=== PATIENT | male | born 1965 | race American Indian/Alaskan Native ===

== ENCOUNTER 2020-08-04 13:15 | Emergency (ER) | payer SELFPAY ==
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
[2020-08-04 14:37] LABS: Basophils % (Auto) 0.4 % (0.0-1.8); Eosinophils # (Auto) 0.1 K/mm3 (0.0-0.4); Eosinophils % (Auto) 0.9 % (0.0-4.3); Hematocrit 37.1 % (35.5-45.6); Lymphocytes % (Auto) 23.2 % (13.4-35.0); Mean Corpuscular HGB Conc 32 % (32-34); Mean Corpuscular Volume 85 fl (84-94); Monocytes # (Auto) 0.8 K/mm3 (0.0-0.8); Platelet Count 308 K/mm3 (140-440); Red Blood Count 4.37 M/mm3 (3.65-5.03); Red Cell Distribution Width 15.4 % (13.2-15.2)
[2020-08-04 14:50] LABS: BUN/Creatinine Ratio 15; Blood Urea Nitrogen 12 mg/dL (9-20); Calcium 8.5 mg/dL (8.4-10.2); Hemolysis Index 10
[2020-08-04 16:40] LABS: Bacteria,Urine 1+ /HPF (Negative); Bilirubin,Urine NEG (Negative); Blood,Urine MOD (Negative); Color,Urine Yellow (Yellow); Mucus,Urine FEW /HPF; Protein,Urine <15 mg/dL mg/dL (Negative); Urobilinogen,Urine < 2.0 mg/dL (<2.0)
[2020-08-04 16:42] LABS: WBC,Urine > 182.0 /HPF (0.0-6.0)
[2020-08-04] MEDS ORDERED: SODIUM CHLORIDE 0.9% 1000 ML 1,000 ML IV ONE (16:48)
[2020-08-04] MEDS ORDERED: levoFLOXacin 500 MG TAB PO ONE (16:49)
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
[2020-08-04 19:29] VITALS: BP 151/97
== END 2020-08-04 22:26 | disposition home or self-care (01) ==
LOC: ED 13:15
DX: N39.0 Urinary tract infection, site not specified (principal); R53.1 Weakness; I10 Essential (primary) hypertension; Z79.899 Other long term (current) drug therapy; Z86.69 Personal history of other diseases of the nervous system and sense organs
CPT/HCPCS: 36415; 70450; 80048; 81001; 84484; 85025; 93005; 96360; 96361; 99284; J7030

== ENCOUNTER 2020-08-14 20:14 | Emergency (ER) | payer MEDICARE ==
[2020-08-14 21:23] LABS: Bilirubin,Urine NEG (Negative); Blood,Urine SM (Negative); Color,Urine Yellow (Yellow); Mucus,Urine FEW /HPF; Protein,Urine <15 mg/dL mg/dL (Negative); Urobilinogen,Urine < 2.0 mg/dL (<2.0)
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
[2020-08-14 21:25] LABS: Amphetamine Screen,Urine PRESUMPTIVE NEGATIVE; Benzodiazepines Screen,Urine PRESUMPTIVE NEGATIVE; Cannabinoid Screen,Urine PRESUMPTIVE NEGATIVE; Cocaine Screen,Urine PRESUMPTIVE NEGATIVE; Methadone Screen,Urine PRESUMPTIVE NEGATIVE; Opiate Screen,Urine PRESUMPTIVE NEGATIVE
[2020-08-14 21:51] LABS: Basophils # (Auto) 0.1 K/mm3 (0.0-0.1); Basophils % (Auto) 1.1 % (0.0-1.8); Eosinophils # (Auto) 0.1 K/mm3 (0.0-0.4); Eosinophils % (Auto) 1.3 % (0.0-4.3); Hematocrit 42.1 % (35.5-45.6); Hemoglobin 13.7 gm/dl (11.8-15.2); Lymphocytes # (Auto) 2.3 K/mm3 (1.2-5.4); Lymphocytes % (Auto) 28.7 % (13.4-35.0); Mean Corpuscular HGB Conc 33 % (32-34); Mean Corpuscular Volume 88 fl (84-94); Monocytes # (Auto) 0.7 K/mm3 (0.0-0.8); Monocytes % (Auto) 8.6 % (0.0-7.3); Platelet Count 284 K/mm3 (140-440); Red Blood Count 4.79 M/mm3 (3.65-5.03); Red Cell Distribution Width 16.3 % (13.2-15.2)
[2020-08-14 22:04] LABS: Alanine Aminotransferase 9 units/L (7-56); Albumin 4.2 g/dL (3.9-5); BUN/Creatinine Ratio 19; Blood Urea Nitrogen 15 mg/dL (9-20); Calcium 9.1 mg/dL (8.4-10.2); Hemolysis Index 56
[2020-08-14] MEDS ORDERED: IBUPROFEN 800 MG TAB ONE (22:25)
[2020-08-14] MEDS ORDERED: IBUPROFEN 800 MG TAB PO ONE (22:26)
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
--- NOTE | 2020-08-16 11:36 | XRay Report ---
CHEST 1 VIEW INDICATION / CLINICAL INFORMATION: Cough FINDINGS: SUPPORT DEVICES: None. HEART / MEDIASTINUM: No significant abnormality. LUNGS / PLEURA: No definite pulmonary or pleural abnormality. See below. No pneumothorax. ADDITIONAL FINDINGS: Ill-defined opacity symmetrically noted projecting over both lower lungs may rep resent nipple shadow. IMPRESSION: 1. No acute findings. Signer Name: Geo Lima MD Signed: 08/16/2020 11:32 AM Workstation Name: [id number]
[2020-08-16] MEDS ORDERED: ACETAMINOPHEN 500 MG TAB PO ONE (20:39)
[2020-08-17] MEDS ORDERED: ACETAMINOPHEN 325 MG TAB PO ONE ×3 (05:28→23:58)
[2020-08-17] MEDS ORDERED: ACETAMINOPHEN 325 MG TAB ONE (23:59)
[2020-08-19] MEDS ORDERED: IBUPROFEN 800 MG TAB PO ONE (20:35)
[2020-08-19 22:07] VITALS: BP 127/69
== END 2020-08-19 21:55 | disposition home or self-care (01) ==
LOC: EEVIPCON 20:14 → ED 20:14
DX: R45.851 Suicidal ideations (principal); I10 Essential (primary) hypertension; F17.200 Nicotine dependence, unspecified, uncomplicated; Z86.69 Personal history of other diseases of the nervous system and sense organs; Z79.899 Other long term (current) drug therapy; Z98.890 Other specified postprocedural states; Z90.49 Acquired absence of other specified parts of digestive tract; Z20.828 Contact with and (suspected) exposure to other viral communicable diseases
CPT/HCPCS: 36415; 71045; 80053; 80156; 80307; 81001; 85025; 99285; U0003; 80320; G0480

== ENCOUNTER 2020-09-25 05:44 | Emergency (ER) | payer MEDICARE ==
[2020-09-25 07:17] VITALS: BP 130/74
--- NOTE | 2020-09-25 12:03 | Emergency Department Report ---
ED General Adult HPI - General Chief complaint: Medical Clearance Stated complaint: PLACE TO STAY Time Seen by Provider: 09/25/20 11:53 Source: patient Mode of arrival: Ambulatory Limitations: Other - History of Present Illness Initial comments: Patient is a 55-year-old male who presents emergency room with complaints of needing a place to stay. He states that he is looking for a halfway. He denies any physical complaints. He denies any pain, vomiting, diarrhea, fever, shortness of breath, chest pain. He denies any SI, HI, hallucinations. He has a past medical history of seizures, blindness, and hypertension. He states that he takes Depakote for his seizures and has not missed any doses. Severity scale (0 -10): 0 - Related Data Home Medications Medication Instructions Recorded Confirmed Last Taken Divalproex Dr [Depakote Dr] 125 mg PO DAILY 08/16/20 08/16/20 Unknown Lisinopril [Zestril TAB] 2.5 mg PO QDAY 08/16/20 08/16/20 Unknown Allergies Allergy/AdvReac Type Severity Reaction Status Date / Time No Known Allergies Allergy Verified 09/25/20 07:11 ED Review of Systems ROS: Stated complaint: PLACE TO STAY Other details as noted in HPI Comment: All other systems reviewed and negative ED Past Medical Hx - Past Medical History Hx Hypertension: Yes Hx Seizures: Yes Additional medical history: BLIND - Surgical History Hx Cholecystectomy: Yes Additional Surgical History: Brain surgery - Social History Smoking Status: Current Every Day Smoker Substance Use Type: Alcohol, Marijuana - Medications Home Medications: Home Medications Medication Instructions Recorded Confirmed Last Taken Type Divalproex Dr [Depakote Dr] 125 mg PO DAILY 08/16/20 08/16/20 Unknown History Lisinopril [Zestril TAB] 2.5 mg PO QDAY 08/16/20 08/16/20 Unknown History ED Physical Exam - General Limitations: Other General appearance: alert, in no apparent distress - Head Head exam: Present: atraumatic, normocephalic - ENT ENT exam: Present: mucous membranes moist - Respiratory Respiratory exam: Absent: respiratory distress, accessory muscle use - Neurological Exam Neurological exam: Present: alert, oriented X3 - Psychiatric Psychiatric exam: Present: normal affect, normal mood. Absent: homicidal ideation, suicidal ideation - Skin Skin exam: Present: warm, dry, intact ED Course Vital Signs 09/25/20 07:16 Temperature 97.9 F Pulse Rate 60 Respiratory 18 Rate Blood Pressure 130/74 [Right] O2 Sat by Pulse 99 Oximetry - Consultations Consultation #1: 09/25/20 12:03 Spoke with manager social media, she is going to take a look into patient's case ED Medical Decision Making - Medical Decision Making Patient is a 55-year-old male who presents emergency room with complaints of needing a place to stay. He states that he is looking for a halfway. He denies any physical complaints. He denies any pain, vomiting, diarrhea, fever, shortness of breath, chest pain. He denies any SI, HI, hallucinations. He has a past medical history of seizures, blindness, and hypertension. He states that he takes Depakote for his seizures and has not missed any doses. VSS. social work consult: Destinee Silvestre [phone] Alida Rivers [phone] SW spoke with patient sister Daniel Rivers who stated that she can not care for the patient. But will try and find a place for Mr. Rivers. PLAN SW will follow up with family 09/26/2020 It appears patient has eloped from the emergency department prior to receiving placement Critical care attestation.: If time is entered above; I have spent that time in minutes in the direct care of this critically ill patient, excluding procedure time. ED Disposition Clinical Impression: Dunia, lead worker of housekeeping and laundry involved in patient's care Disposition: Z-07 ELOPED Is pt being admited?: No Does the pt Need Aspirin: No Condition: Stable Referrals: PRIMARY CARE, [Primary Care Provider] - 3-5 Days
== END 2020-09-25 12:00 | disposition left against medical advice (07) ==
LOC: ED 05:44
DX: G40.909 Epilepsy, unspecified, not intractable, without status epilepticus (principal); F17.200 Nicotine dependence, unspecified, uncomplicated; F12.10 Cannabis abuse, uncomplicated; Z59.0 Homelessness; Z64.4 Discord with counselors; Z79.899 Other long term (current) drug therapy
CPT/HCPCS: 99281

== ENCOUNTER 2020-10-18 14:03 | Emergency (ER) | payer MEDICARE ==
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
[2020-10-18] MEDS ORDERED: LORazepam 2 MG/ML VIAL ONE (14:39)
[2020-10-18] MEDS ORDERED: levETIRAcetam 1000 MG/NS 0.75% 1,000 MG/100 ML BAG IV ONE (14:42)
[2020-10-18] MEDS ORDERED: LORazepam 2 MG/ML VIAL IV ONE (14:42)
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
[2020-10-18 14:49] LABS: Basophils # (Auto) 0.1 K/mm3 (0.0-0.1); Basophils % (Auto) 1.5 % (0.0-1.8); Eosinophils # (Auto) 0.1 K/mm3 (0.0-0.4); Eosinophils % (Auto) 0.9 % (0.0-4.3); Hematocrit 41.2 % (35.5-45.6); Hemoglobin 13.6 gm/dl (11.8-15.2); Lymphocytes # (Auto) 1.5 K/mm3 (1.2-5.4); Lymphocytes % (Auto) 25.7 % (13.4-35.0); Mean Corpuscular HGB Conc 33 % (32-34); Mean Corpuscular Volume 84 fl (84-94); Monocytes # (Auto) 0.7 K/mm3 (0.0-0.8); Monocytes % (Auto) 11.1 % (0.0-7.3); Platelet Count 261 K/mm3 (140-440); Red Blood Count 4.91 M/mm3 (3.65-5.03); Red Cell Distribution Width 14.7 % (13.2-15.2)
[2020-10-18 15:02] LABS: INR 0.97 (0.87-1.13)
[2020-10-18 15:03] LABS: Thrombin Time 17.3 Sec. (15.1-19.6)
[2020-10-18 15:06] LABS: BUN/Creatinine Ratio 8; Blood Urea Nitrogen 8 mg/dL (9-20); Calcium 8.5 mg/dL (8.4-10.2); Hemolysis Index 10
[2020-10-18 16:01] VITALS: BP 167/104
[2020-10-18] MEDS ORDERED: DIVALPROEX DR 500 MG TAB PO ONE (16:06)
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
== END 2020-10-18 17:30 ==
LOC: ED 14:03
DX: R56.9 Unspecified convulsions (principal); I10 Essential (primary) hypertension; F17.200 Nicotine dependence, unspecified, uncomplicated; F12.10 Cannabis abuse, uncomplicated; Z79.899 Other long term (current) drug therapy; Z98.890 Other specified postprocedural states
CPT/HCPCS: 36415; 70450; 80048; 80164; 84484; 85025; 85610; 85670; 85730; 96374; 96375; 99284; J1953; J2060

== ENCOUNTER 2021-04-05 22:01 | Emergency (ER) | payer MEDICARE ==
[2021-04-06 00:28] LABS: Basophils # (Auto) 0.1 K/mm3 (0.0-0.1); Basophils % (Auto) 0.7 % (0.0-1.8); Eosinophils # (Auto) 0.1 K/mm3 (0.0-0.4); Hematocrit 41.8 % (35.5-45.6); Lymphocytes # (Auto) 2.2 K/mm3 (1.2-5.4); Lymphocytes % (Auto) 31.8 % (13.4-35.0); Mean Corpuscular HGB Conc 34 % (32-34); Mean Corpuscular Volume 86 fl (84-94); Monocytes # (Auto) 0.7 K/mm3 (0.0-0.8); Monocytes % (Auto) 10.3 % (0.0-7.3); Platelet Count 233 K/mm3 (140-440); Red Blood Count 4.86 M/mm3 (3.65-5.03); Red Cell Distribution Width 15.3 % (13.2-15.2)
[2021-04-06 00:48] LABS: Alanine Aminotransferase 10 units/L (7-56); Albumin 4.3 g/dL (3.9-5); BUN/Creatinine Ratio 17; Blood Urea Nitrogen 17 mg/dL (9-20); Calcium 8.6 mg/dL (8.4-10.2); Hemolysis Index 29
[2021-04-06 03:18] VITALS: BP 155/94
[2021-04-06] MEDS ORDERED: oxyCODONE /ACETAMINOPHEN 5-325MG TAB PO ONE (03:18)
[2021-04-06 03:28] LABS: Bacteria,Urine 1+ /HPF (Negative); Bilirubin,Urine NEG (Negative); Blood,Urine SM (Negative); Color,Urine Yellow (Yellow); Mucus,Urine FEW /HPF; Protein,Urine <15 mg/dL mg/dL (Negative); Urobilinogen,Urine < 2.0 mg/dL (<2.0)
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
--- NOTE | 2021-04-06 04:15 | Cat Scan Report ---
CT ABDOMEN AND PELVIS WITHOUT CONTRAST INDICATION / CLINICAL INFORMATION: Abd pain. TECHNIQUE: Axial CT images were obtained through the abdomen and pelvis without IV contrast. All CT scans at this location are performed using CT dose reduction for ALARA by means of automated exposure control. COMPARISON: None available. FINDINGS: FINDINGS: LOWER CHEST: No significant abnormality LIVER: No significant abnormality GALLBLADDER/BILIARY TREE: Cholecystectomy. PANCREAS: No significant abnormality SPLEEN: No significant abnormality ADRENALS: No significant abnormality KIDNEYS / URETER: No significant abnormality URINARY BLADDER: Bladder is partially decompressed, though grossly unremarkable. REPRODUCTIVE ORGANS: No significant abnormality STOMACH / BOWEL:Short segment of distal small bowel extends into a right inguinal hernia. There is no evidence of associated bowel obstruction. Mild associated fat stranding is present in the hernia sac . LYMPH NODES: No significant adenopathy. VASCULATURE: No significant abnormality. OTHER: No free air, free fluid, or focal fluid collection is identified. Small umbilical hernia conta ins noninflamed fat. Right inguinal hernia detailed above. SKELETAL SYSTEM: No acute osseous findings. IMPRESSION: 1. Small to moderate right inguinal hernia contains a short segment of distal small bowel. Mild infla mmatory stranding of the fat within the hernia sac may reflect strangulation, though there is no evid ence of obstruction, and the bowel within the hernia sac does not appear to be inflamed. No pneumatos is. 2. Otherwise, no acute abnormality of the abdomen or pelvis. Signer Name: Terry Marks MD Signed: 04/06/2021 4:10 AM Workstation Name: [id number]
== END 2021-04-06 06:55 | disposition home or self-care (01) ==
LOC: ED 22:01
DX: R10.9 Unspecified abdominal pain (principal); K40.90 Unilateral inguinal hernia, without obstruction or gangrene, not specified as recurrent; I10 Essential (primary) hypertension; F17.200 Nicotine dependence, unspecified, uncomplicated; Z98.890 Other specified postprocedural states
CPT/HCPCS: 36415; 74176; 80053; 81001; 85025; 99284